=== PATIENT | female | born 1940 | race Caucasian/White ===

== ENCOUNTER → 2023-07-11 13:49 | Outpatient (REF) | payer OTHER, SELFPAY | LOC: WDC 13:49 | PROVIDERS: ATTENDING PHYSICIAN Obstetrics & Gynecology; FAMILY PHYSICIAN Registered Nurse | DX: Z12.31 Encounter for screening mammogram for malignant neoplasm of breast (principal) | CPT/HCPCS: 77063; 77067 ==

== ENCOUNTER → 2023-09-06 12:51 | Outpatient (REF) | payer OTHER, SELFPAY | LOC: RAD 12:51 | PROVIDERS: ATTENDING PHYSICIAN Registered Nurse | DX: M79.601 Pain in right arm (principal) | CPT/HCPCS: 72040; 73030; 73060 ==

== ENCOUNTER 2024-06-30 10:25 | Emergency (ER) | payer OTHER, SELFPAY ==
[2024-06-30 10:36] VITALS: BP 156/84
[2024-06-30 11:02] LABS: % Basophils 0.7 % (0-2); % Eosinophils 1.5 % (0-6); % Immature Granulocytes 0.2 % (0-0.5); % Lymphocytes 13.7 % (20.5-51.1); % Monocytes 12.1 % (1.7-9.3); % Neutrophils 71.8 % (42.2-75.2); Absolute Basophils 0.1 10^3/uL (0-0.2); Absolute Eosinophils 0.2 10^3/uL (0-0.7); Absolute Lymphocytes 1.5 10^3/uL (1.2-3.4); Absolute Monocytes 1.3 10^3/uL (0.1-0.6); Absolute Neutrophils 7.9 10^3/uL (1.4-6.5); Hematocrit 41.2 % (37.0-47.0); Hemoglobin 13.9 g/dL (12.0-16.0); Mean Corp Hgb Conc. 33.7 g/dL (33.0-37.0); Mean Corpuscular Hgb 31.7 pg (27.0-31.0); Mean Corpuscular Volume 93.8 fL (81.0-99.0); Nucleated Red Blood Cells % 0 %; Platelet Count 338 10^3/uL (130-400); Red Blood Cell Count 4.39 10^6/uL (4.20-5.40); White Blood Cell Count 10.9 10^3/uL (4.8-10.8)
[2024-06-30 11:03] LABS: Urine Albumin Negative (Neg - Trace); Urine Bilirubin Negative (Negative); Urine Character Clear (Clear); Urine Color Yellow; Urine Glucose Negative (Negative); Urine Ketone Negative (Negative); Urine Leukocyte 1+ (Negative); Urine Nitrite Negative (Negative); Urine Occult Blood 2+ (Negative); Urine Urobilinogen Negative (Neg - 1+)
[2024-06-30 11:33] LABS: ALT (SGPT) 11 U/L (0-35); AST (SGOT) 16 U/L (14-36); Alkaline Phosphatase 70 U/L (38-126); Blood Urea Nitrogen 6 mg/dl (7-17); Calcium 8.8 mg/dl (8.4-10.2); Carbon Dioxide 28 mmol/L (22-30); Chloride 100 mmol/L (98-107); Glucose 124 mg/dl (70-99); Lipase 46 U/L (23-300); Potassium 3.9 mmol/L (3.5-5.1); Sodium 136 mmol/L (135-145); Total Bilirubin 1.1 mg/dl (0.2-1.3); eGFR > 60.00
[2024-06-30 11:35] LABS: Urine Bacteria Few (Negative); Urine Red Blood Cell 0-2 /HPF (0-2); Urine White Cell 0-2 /HPF (0-5)
[2024-06-30 14:04] VITALS: BP 170/87
[2024-06-30 14:07] VITALS: BMI 24.7
--- NOTE | 2024-06-30 14:34 | ED.GENMED ---
History of Present Illness
General
Chief Complaint: Abdominal Symptoms
Source: patient
Exam Limitations: none
Time Seen by Provider: 06/30/24 13:44
Nursing documentation reviewed up to this point in time: agreed with
History of Present Illness
History of Present Illness:
Patient presents to ED secondary to 1 week history of persistent abdominal bloating and gaseous sensation. Denies abdominal pain. Denies nausea, vomiting, or diarrhea. Denies fever or chills. Denies trauma. Denies difficulty urination. Denies
any alleviating or exacerbating factors. As patient has had history of diverticulitis, patient has also restricted herself to BRAT diet, without improving symptoms. Patient was evaluated by her primary care physician at onset of symptoms, and was
prescribed Augmentin, to which she developed itchy rash. As such, patient was seen at urgent care center 2 days afterwards, and was started on Flagyl, with significant abdominal discomfort.
Past History
Past History
ED Past Medical History: Hypercholesterolemia, Other (PANIC ATTACHKS, MIGRAINE) and Other (Anxiety,)
Social History
Tobacco: Non-smoker
Alcohol: Occasional
Drug: None
Personal:
Living: with family
Family History
Family History: Other (Father with COPD, mother with [place], sister with leukemia)
Review of Systems
Review of Systems
Allergies reviewed?: Yes
All Other Systems: ROS reviewed and negative except as documented in HPI and ROS
Constitutional: Reports no symptoms
EENT: Reports no symptoms
Respiratory: Reports no symptoms
Cardiac: Reports no symptoms
ABD/GI: Reports abdominal pain; Denies nausea, vomiting or diarrhea
Musculoskeletal: Reports no symptoms
Skin: Reports no symptoms
Neurological: Reports no symptoms
Phy Exam
Physical Exam
Physical Exam:
Physical Exam
General: no apparent distress, not acutely ill. afebrile.
Head: nc/at. eomi
Neck: supple. normal range of motion.
Heart: s1/s2 regular rate and rhythm, no murmur. equal radial pulses.
Lungs: no acute respiratory distress. clear bilaterally
Abdomen: normal bowel sounds. not tender. no distention
Neuro: alert and oriented x 3. no focal neurological deficits
Skin: no rash
Psychiatric: well kept. interactive and cooperative
Extremities: no edema. no calf tenderness.
Course
Orders/Labs/Results
Orders:
Orders
06/30/24 10:41
IV Insert/Care/Rem.- Treatment PRN
06/30/24 10:55
Complete Blood Count/With Diff Urgent
Comprehensive Metabolic Panel Urgent
Lipase Urgent
Urinalysis Reflex To Culture Urgent
Date Specimen was Collected: 06/30/24
Time Specimen was Collected: 10:41
Urine Microscopic Reflex Cult Urgent
Urine Culture Urgent
VON Source: U
Specimen Description:
Date Specimen was Collected: 06/30/24
Time Specimen was Collected: 10:41
06/30/24 13:50
CT Abd/pelvis W Iv Cont Urgent
Comment:
Reason For Exam: LLQ pain w hx diverticulitis
Abnormal Lab Results
06/30/24
10:55
WBC 10.9 H 10^3/uL
(4.8-10.8)
MCH 31.7 H pg
(27.0-31.0)
Absolute Neuts (auto) 7.9 H 10^3/uL
(1.4-6.5)
Absolute Monos (auto) 1.3 H 10^3/uL
(0.1-0.6)
Lymphocytes % 13.7 L %
(20.5-51.1)
Monocytes % 12.1 H %
(1.7-9.3)
BUN 6 L mg/dl
(7-17)
Glucose 124 H mg/dl
(70-99)
Ur Occult Blood Reflex 2+ A
(Negative)
Leukocyte Esterase Rfl 1+ A
(Negative)
Urine Bacteria (Reflex) Few A
(Negative)
06/30/24 10:55
06/30/24 10:55
Vital Signs
Initial and Last Documented VS:
Initial Vital Signs
Temp Pulse Resp BP Pulse Ox
98.1 F 106 22 156/84 96
06/30/24 10:36 06/30/24 10:36 06/30/24 10:36 06/30/24 10:36 06/30/24 10:36
Last Documented Vital Signs
Temp Pulse Resp BP Pulse Ox
98.1 F 110 25 170/87 97
06/30/24 10:36 06/30/24 14:15 06/30/24 14:15 06/30/24 14:04 06/30/24 14:15
MDM/Problems Addressed
MDM/Problems Addressed:
Patient with an unremarkable workup in ED, including blood work and CT abdomen pelvis. Patient otherwise remains afebrile, hemodynamically stable, and nontoxic-appearing. Advised continual dietary modification, stool regimen, along with PCP
follow-up as an outpatient. No indication for any further antibiotics at this time. Patient and spouse expressed understanding at time of discharge.
*Critical Care Note
Total Time (30-74mins, 75-104mins- exclusive of procedures): Not Applicable
ED Attending Note
-
Portions of this chart may have been created with voice recognition software.� Occasional wrong word or��sound alike� substitutions may have occurred due to the inherent limitations of voice recognition software.
Discharge Plan
Departure
Patient Disposition: Home (Routine Discharge)
Date of Disposition: 06/30/24
Time of Disposition: 16:15
Patient with high blood pressure during this ER visit?: Yes
Discharge Problem:
Abdominal pain
Instructions: Constipation, Adult ED, Abdominal Pain
Prescriptions:
No Action
acetaminophen [Tylenol Extra Strength] 500 MG tablet
1,000 mg PO Q6HPRN PRN (Reason: Pain)
Patient Comments:
With Percocet
diazepam 5 MG tablet
5 mg PO Q6H
diazepam 5 MG tablet
5 mg PO PRN PRN (Reason: Pain)
Patient Comments:
Takes with percocet
sennosides [senna] 1 TABLET tablet
2 tab PO HSPRN PRN (Reason: constipation)
Lactobacillus acidophilus [Acidophilus] 1 CAP capsule
2 cap PO DAILY
ezetimibe 10 MG tablet
10 mg PO DAILY
oxycodone-acetaminophen 5 MG/325 MG tablet
1 - 2 tab PO Q4HPRN PRN (Reason: moderate to severe pain) Qty: 25 0RF
oxycodone-acetaminophen 5 MG/325 MG tablet
1 - 2 tab PO Q4HPRN PRN (Reason: moderate to severe pain) Qty: 40 0RF
Referrals:
Steve Bullock CRNP [Family Provider] -
Rosio Flores DO [Active] -
Activity Restrictions/Additional Instructions:
As discussed, please follow-up with your primary care physician and/or referred GI physician for further evaluation and treatment.
Interventions
Interventions:
*Risk Screen - Suicide Last Done: 06/30/24 10:36
*General Assessment Last Done: 06/30/24 10:36
*Neglect/Abuse Screening Last Done: 06/30/24 10:36
ED- Fall Risk Assessment Last Done: 06/30/24 13:37
*ED COVID-19 Vaccine History Last Done: 06/30/24 13:36
*Nursing Disposition Last Done: 06/30/24 16:35
GB-Qsdlzl-Rqaidtiaec Assessment Last Done: 06/30/24 13:37
Discharge Date and Time
Discharge Date/Time: 06/30/24 16:39
Print Language: HUNGARIAN
== END 2024-06-30 16:39 | disposition home or self-care (01) ==
LOC: EMR 10:25
PROVIDERS: Emergency Medicine; EMERGENCY PHYSICIAN Emergency Medicine; FAMILY PHYSICIAN Registered Nurse
DX: R10.9 Unspecified abdominal pain (principal); R03.0 Elevated blood-pressure reading, without diagnosis of hypertension
CPT/HCPCS: 99285; 74177; 80053; 81003; 81015; 83690; 85025; 87086; Q9967

== ENCOUNTER 2024-08-21 21:39 | Emergency (ER) | payer OTHER, SELFPAY ==
[2024-08-21 21:52] VITALS: BP 159/77
[2024-08-21] MEDS: ZOFRAN ODT (ORALLY DISINTEGRATING) 4 MG PO (22:02)
[2024-08-21 22:13] LABS: % Basophils 0.3 % (0-2); % Eosinophils 0.1 % (0-6); % Immature Granulocytes 0.4 % (0-0.5); % Lymphocytes 2.2 % (20.5-51.1); % Monocytes 5.5 % (1.7-9.3); % Neutrophils 91.5 % (42.2-75.2); Absolute Basophils 0.1 10^3/uL (0-0.2); Absolute Immature Granulocytes 0.1 10^3/uL (0-0.05); Absolute Lymphocytes 0.3 10^3/uL (1.2-3.4); Absolute Monocytes 0.9 10^3/uL (0.1-0.6); Absolute Neutrophils 14.4 10^3/uL (1.4-6.5); Hematocrit 48.9 % (37.0-47.0); Hemoglobin 16.9 g/dL (12.0-16.0); Mean Corp Hgb Conc. 34.6 g/dL (33.0-37.0); Mean Corpuscular Hgb 31.5 pg (27.0-31.0); Mean Corpuscular Volume 91.2 fL (81.0-99.0); Mean Platelet Volume 10.1 fL (7.4-10.4); Nucleated Red Blood Cells % 0 %; Platelet Count 231 10^3/uL (130-400); Red Blood Cell Count 5.36 10^6/uL (4.20-5.40); Red Cell Dist. Width 13.5 % (11.5-14.5); White Blood Cell Count 15.7 10^3/uL (4.8-10.8)
--- NOTE | 2024-08-21 22:26 | EDRN ---
Patient ambulated to the triage desk stating the zofran given at 2202 has not taken effect yet although she states she has nothing left to vomit. Updated patient the medication may need some more time to take effect.
[2024-08-21 22:38] LABS: ALT (SGPT) 16 U/L (0-35); AST (SGOT) 22 U/L (14-36); Albumin 4.2 g/dl (3.5-5.0); Alkaline Phosphatase 95 U/L (38-126); Blood Urea Nitrogen 17 mg/dl (7-17); Carbon Dioxide 26 mmol/L (22-30); Chloride 102 mmol/L (98-107); Glucose 175 mg/dl (70-99); Lipase 41 U/L (23-300); Potassium 4.5 mmol/L (3.5-5.1); Sodium 137 mmol/L (135-145); Total Bilirubin 2.1 mg/dl (0.2-1.3); Total Protein 7.2 g/dl (6.3-8.2); eGFR > 60.00
--- NOTE | 2024-08-21 23:23 | ED.GENMED ---
History of Present Illness
General
Chief Complaint: Abdominal Symptoms
Source: patient
Exam Limitations: none
Time Seen by Provider: 08/21/24 23:13
History of Present Illness
History of Present Illness:
See MDM
Past History
Past History
ED Past Medical History: Hypercholesterolemia, Other (PANIC ATTACHKS, MIGRAINE) and Other (Anxiety,)
Social History
Tobacco: Non-smoker
Alcohol: Occasional
Drug: None
Personal:
Living: with family
Family History
Family History: Other (Father with COPD, mother with [place], sister with leukemia)
Phy Exam
Physical Exam
Physical Exam:
See MDM
Course
Orders/Labs/Results
Orders:
Orders
08/21/24 21:40
EKG [Electrocardiogram (*1)] Urgent
Reason for Study: Chest Pain
08/21/24 21:41
EKG- Treatment ONCE
08/21/24 22:00
Ondansetron Orally Disint [Zofran Odt (Orally Disintegrating)] 4 mg .ROUTE .STK-MED ONE
08/21/24 22:01
Complete Blood Count/With Diff Urgent
Comprehensive Metabolic Panel Urgent
Lipase Urgent
08/21/24 22:02
Ondansetron Orally Disint [Zofran Odt (Orally Disintegrating)] 4 mg PO NOW STA
08/21/24 23:20
Ondansetron Injectable [Zofran] 4 mg .ROUTE .STK-MED ONE
08/21/24 23:21
STOOL [C difficile Antigen & Toxins] Urgent
VON Source: Feces/Stool
Specimen Description:
Stool Culture Urgent
VON Source: Feces/Stool
Specimen Description:
0.9% Sodium Chloride 1000 ml [Nss] 1,000 ml IV BOLUS
Ondansetron Injectable [Zofran] 4 mg IV NOW STA
08/22/24 01:14
CT Abd/pelvis W Iv Cont Urgent
Reason For Exam: N/V/D, hx complicated diverticulitis
08/22/24 02:02
Ciprofloxacin HCl [Cipro] 250 mg PO ONCE ONE
MetroNIDAZOLE [Flagyl] 500 mg PO NOW STA
Abnormal Lab Results
08/21/24
22:01
WBC 15.7 H 10^3/uL
(4.8-10.8)
Hgb 16.9 H g/dL
(12.0-16.0)
Hct 48.9 H %
(37.0-47.0)
MCH 31.5 H pg
(27.0-31.0)
Abs Immat Gran (auto) 0.1 H 10^3/uL
(0-0.05)
Absolute Neuts (auto) 14.4 H 10^3/uL
(1.4-6.5)
Absolute Lymphs (auto) 0.3 L 10^3/uL
(1.2-3.4)
Absolute Monos (auto) 0.9 H 10^3/uL
(0.1-0.6)
Neutrophils % 91.5 H %
(42.2-75.2)
Lymphocytes % 2.2 L %
(20.5-51.1)
Glucose 175 H mg/dl
(70-99)
Total Bilirubin 2.1 H mg/dl
(0.2-1.3)
08/21/24 22:01
08/21/24 22:01
Vital Signs
Initial and Last Documented VS:
Initial Vital Signs
Temp Pulse BP
97.9 F 128 159/77
08/21/24 21:52 08/21/24 21:52 08/21/24 21:52
Last Documented Vital Signs
Temp Pulse Resp BP Pulse Ox
97.9 F 95 41 117/76 98
08/21/24 21:52 08/22/24 00:30 08/22/24 00:30 08/22/24 00:00 08/22/24 00:15
MDM/Problems Addressed
Differential Diagnosis Includes:
HPI and MDM Narrative:
84-year-old female presenting with nausea, vomiting and diarrhea since this evening. She states she vomited approximately 25 times and had just as much diarrhea. Patient was given Zofran in the waiting room. Patient states her nausea has
significantly improved and she believes her diarrhea is almost over as well. She denies abdominal pain. Prior records indicate history of complicated diverticulitis. She does indicate that she usually does not get abdominal pain when she has
diverticulitis flare. Given that, will obtain CT abdomen/pelvis. Patient is clinically dry. Will give IV fluids and another dose of Zofran. Patient is already asking for ice chips
Physical exam
General: Well appearing and non-toxic
HEENT: protecting airway. Dry mucous membranes
Neck: appears supple
CV: No evidence of cyanosis
Resp: No accessory muscle use
Abd: Non-distended. No tenderness
Extremities: No deformities
Neuro: alert
Psych: Normal affect
Skin: Intact
Problems Addressed including Acute and Chronic Conditions affecting care:
1. Nausea, vomiting, diarrhea
Acuity: acute
Prognosis: stable
Details: Symptoms are improving with Zofran. Given age and prior history, will obtain abdomen/pelvis. Will order stool studies if patient can give specimen
Updates
CT consistent for colitis. When I reexamined the patient, she states she feels much better. I did offer and suggest more fluids and admission. Patient states she would rather go home. She does have allergies to amoxicillin and Augmentin. She
thinks she can tolerate Cipro but she states she can only do the low-dose. Will start Cipro and Flagyl discussed follow-up with PCP and GI
Differential Diagnosis (but not limited to): C. difficile, diverticulitis, viral gastroenteritis
Testing considered: Urinalysis but she denies symptoms
Drug therapy (if applicable): OTC meds, please see d/c instruction regarding Rx drugs
Amount and/or Complexity of Data Reviewed
Clinical info obtained from: Patient
External data reviewed: Prior history of complicated diverticulitis
Labs I independently reviewed (but not limited to): Leukocytosis but this could be be reactive or concentrated
Radiology: The CT scan was personally and independently reviewed. In addition, official CT report reviewed.
Pulse Ox: not hypoxic
EKG independently reviewed: Sinus tachycardia, left axis, no STEMI
Director Quality Systems: N/A
Critical Care: N/A
Risk of Complication:
Social Determinants of health: Good social support
Discussed with other providers: N/A
Escalation of Care includes Admit/Obs: After being observed in the Emergency Department, pt stable for discharge.
Occasional wrong word or 'sound a like' substitutions may have occurred due to the inherent limitations of voice recognition software. Read the chart carefully and recognize, using context, where substitutions have occurred.
*Critical Care Note
Total Time (30-74mins, 75-104mins- exclusive of procedures): Not Applicable
ED Attending Note
-
Portions of this chart may have been created with voice recognition software.� Occasional wrong word or��sound alike� substitutions may have occurred due to the inherent limitations of voice recognition software.
Discharge Plan
Departure
Patient Disposition: Home (Routine Discharge)
Date of Disposition: 08/22/24
Time of Disposition: 02:03
Patient with high blood pressure during this ER visit?: No
Discharge Problem:
Colitis
Instructions: Colitis
Prescriptions:
New
metronidazole 500 mg Tablet
500 mg PO TID Qty: 21 0RF
ciprofloxacin HCl [Cipro] 250 mg tablet
250 mg PO BID Qty: 14 0RF
No Action
acetaminophen [Tylenol Extra Strength] 500 MG tablet
1,000 mg PO Q6HPRN PRN (Reason: Pain)
Patient Comments:
With Percocet
diazepam 5 MG tablet
5 mg PO Q6H
diazepam 5 MG tablet
5 mg PO PRN PRN (Reason: Pain)
Patient Comments:
Takes with percocet
sennosides [senna] 1 TABLET tablet
2 tab PO HSPRN PRN (Reason: constipation)
Lactobacillus acidophilus [Acidophilus] 1 CAP capsule
2 cap PO DAILY
ezetimibe 10 MG tablet
10 mg PO DAILY
oxycodone-acetaminophen 5 MG/325 MG tablet
1 - 2 tab PO Q4HPRN PRN (Reason: moderate to severe pain) Qty: 25 0RF
oxycodone-acetaminophen 5 MG/325 MG tablet
1 - 2 tab PO Q4HPRN PRN (Reason: moderate to severe pain) Qty: 40 0RF
Referrals:
Steve Bullock CRNP [Family Provider] -
Activity Restrictions/Additional Instructions:
Please return for any worsening symptoms.
You may return at any time if you have further concerns.
Please follow up with your doctor at the first available appointment, preferably this week.
Thank you for choosing [facility].
Interventions
Interventions:
*General Assessment Last Done: 08/21/24 21:44
*Neglect/Abuse Screening Last Done: 08/21/24 21:44
*ED- Fall Risk Assessment Last Done: 08/21/24 23:44
*ED COVID-19 Vaccine History Last Done: 08/21/24 21:44
WZ-Vsyyvz-Dfojvvetmj Assessment Last Done: 08/21/24 23:44
Discharge Date and Time
Print Language: WELSH
[2024-08-21] MEDS: ZOFRAN 4 MG IV (23:28)
[2024-08-21] MEDS: NSS 1000 IV (23:28)
[2024-08-21 23:44] VITALS: BMI 23.8
[2024-08-21 23:49] VITALS: BP 127/63
[2024-08-22] VITALS: BP 117/76
[2024-08-22 01:00] VITALS: BP 135/66
[2024-08-22 02:01] VITALS: BP 126/70
[2024-08-22] MEDS: CIPRO 250 MG PO (02:31)
[2024-08-22] MEDS: FLAGYL 500 MG PO (02:32)
== END 2024-08-22 02:35 | disposition home or self-care (01) ==
LOC: EMR 21:39
PROVIDERS: EMERGENCY PHYSICIAN Student in an Organized Health Care Education/Training Program; FAMILY PHYSICIAN Registered Nurse
DX: K52.9 Noninfective gastroenteritis and colitis, unspecified (principal); E78.00 Pure hypercholesterolemia, unspecified; F41.9 Anxiety disorder, unspecified; Z80.6 Family history of leukemia; Z82.49 Family history of ischemic heart disease and other diseases of the circulatory system
CPT/HCPCS: 99284; 96374; 96361; 74177; 80053; 83690; 85025; 93005; Q9967

== ENCOUNTER → 2024-09-11 13:30 | Outpatient (REF) | payer OTHER, SELFPAY | LOC: WDC 13:30 | PROVIDERS: ATTENDING PHYSICIAN Registered Nurse | DX: Z12.31 Encounter for screening mammogram for malignant neoplasm of breast (principal) | CPT/HCPCS: 77063; 77067 ==

== ENCOUNTER → 2024-09-24 12:51 | Outpatient (REF) | payer OTHER, SELFPAY | LOC: HWRAD 12:51 | PROVIDERS: ATTENDING PHYSICIAN Registered Nurse | DX: R91.8 Other nonspecific abnormal finding of lung field (principal) | CPT/HCPCS: 71250 ==

== ENCOUNTER → 2025-05-07 12:30 | Outpatient (REF) | payer OTHER, SELFPAY | LOC: HWRAD 12:30 | PROVIDERS: ATTENDING PHYSICIAN Internal Medicine Critical Care Medicine; FAMILY PHYSICIAN Registered Nurse | DX: R91.8 Other nonspecific abnormal finding of lung field (principal) | CPT/HCPCS: 71250 ==